=== PATIENT | male | born 1985 | race Caucasian/White ===

== ENCOUNTER 2017-08-04 19:05 | Emergency (ER) | payer OTHER ==
[2017-08-04 19:55] LABS: URINE BLOOD (Dip) POC 1+ (NEGATIVE); URINE GLUCOSE (Dip) POC Negative (NEGATIVE); URINE KETONES (Dip) POC Negative (NEGATIVE); URINE LEUKOCYTE EST (Dip) POC Negative (NEGATIVE); URINE NITRITE (Dip) POC Negative (NEGATIVE); URINE TOTAL PROTEIN POC Negative (NEGATIVE)
[2017-08-04] MEDS: CEFTRIAXONE 250 MG INJ IM (20:07)
[2017-08-04] MEDS: AZITHROMYCIN 250 MG TAB PO (20:07)
[2017-08-04] MEDS ORDERED: IBUPROFEN 800 MG TAB PO (21:00)
[2017-08-04] MEDS: KETOROLAC 60 MG INJ IM (21:13)
== END 2017-08-04 21:43 | disposition home or self-care (01) ==
LOC: FTE 19:05
DX: R30.0 Dysuria (principal); I10 Essential (primary) hypertension; F17.210 Nicotine dependence, cigarettes, uncomplicated
CPT/HCPCS: 81003; 87086; 87591; 96372; 99284-25